=== PATIENT | female | born 1955 | race Caucasian/White ===

== ENCOUNTER 2016-11-17 05:56 | Inpatient (IN) | payer OTHER ==
[2016-11-10 11:26] LABS: BASOPHILS 0.5 %; BASOPHILS ABSOLUTE 0.04 10/3/uL (0.0-0.16); EOSINOPHILS 1.9 %; EOSINOPHILS ABSOLUTE 0.16 10/3/uL (0.0-0.53); HEMATOCRIT 40.8 % (36.0-48.0); HEMOGLOBIN 13.2 g/dL (12.0-16.0); IMMATURE GRANULOCYTES 0.4 %; IMMATURE GRANULOCYTES ABSOLUTE 0.03 10/3/uL (0.0-0.11); LYMPHOCYTES 33.9 %; LYMPHOCYTES ABSOLUTE 2.89 10/3/uL (0.67-4.30); MEAN CORPUS HGB CONC 32.4 g/dL (32.0-36.0); MEAN CORPUSCULAR HEMOGLOB 27.6 pg (26.0-34.0); MEAN CORPUSCULAR VOLUME 85.4 fL (80-100); MEAN PLATELET VOLUME 9.7 fL (9.2-13.0); MONOCYTES 8.3 %; MONOCYTES ABSOLUTE 0.71 10/3/uL (0.21-1.20); PLATELET COUNT 367 10/3/uL (150-400); RBC DISTRIBUTION WIDTH 14.2 % (12.0-16.0); RED CELL COUNT 4.78 10/6/uL (4.0-5.6)
[2016-11-10 11:27] LABS: MANUAL DIFF NO %; WHITE BLOOD CELLS 8.5 10/3/uL (4.5-10.5)
[2016-11-10 11:33] LABS: PARTIAL THROMBO TIME 29.5 SEC (22.5-37.2); PROTIME (NOT ORD) 13.5 SEC (12.0-14.5)
[2016-11-10 11:40] LABS: A/G RATIO 0.9 (0.7-1.9); ALBUMIN 3.4 G/DL (3.5-5.0); ALKALINE PHOSPHATASE 65 U/L (45-117); BUN (BLOOD UREA NITROGEN) 14 MG/DL (6-23); CALCIUM, SERUM 8.9 MG/DL (8.5-10.4); CHLORIDE, SERUM 106 MMOL/L (96-112); CO2 (CARBON DIOXIDE) 27 MMOL/L (24-34); CREATININE 0.68 MG/DL (0.55-1.02); GFR AFRICAN AMERICAN 109 ML/MIN (>=60); GFR NON AFRICAN AMERICAN 94 ML/MIN (>=60); GLOBULIN 3.8 G/DL (2.5-4.1); GLUCOSE, SERUM 107 MG/DL (60-99); POTASSIUM, SERUM 3.9 MMOL/L (3.5-5.3); SGOT(AST) 19 U/L (5-40); SGPT(ALT) 31 U/L (5-65); SODIUM, SERUM 142 MMOL/L (135-148); TOTAL BILIRUBIN 0.3 MG/DL (0-1.2); TOTAL PROTEIN 7.2 G/DL (6.0-8.5)
--- NOTE | ~2016-11-17 | DS ---
Discharge Summary [facility] [address] [place]. [address] NAME: JUNE NEW : 55 STATUS : DIS IN PAT#: [id number] AGE: 61 ADM/REG DATE : 11/17/16 MR#: [id number] REPORT SERV DATE: 12/02/16 DICTATED BY: MILES BREWSTER III DATE: 12/01/16 REPORT STATUS : Draft TRANSCRIBED BY: JOSE DATE: 12/01/16 Data Collection from hospitalization DISCHARGE DIAGNOSES: 1. Biopsy-proven adenocarcinoma of the distal stomach. 2. Gastroesophageal reflux disease. 3. Arthritis. CONSULTATIONS: None. PROCEDURES: Hemigastrectomy with antecolic Billroth II anastomosis, 11/17/2016. PATHOLOGY: Stomach, subtotal gastrectomy-adenocarcinoma diffuse, signet ring cell predominant, tumor site - antrum, size - maximal tumor dimension - 3.1 x 2.3 cm. Histologic grade-poorly differentiated. Local extent-tumor invasive submucosa (pT1b) vascular space invasion-not identified. Perineural invasion-not identified. Status of margins-negative. Left node-21 nodes negative for metastatic carcinoma (0/21). Treatment effect-no prior treatment. Other findings-fundic gland polyps. Multiple pathologic stage-1 (pT1b pN0 pM0). DISCHARGE MEDICATION: Multivitamins 1 every morning, Percocet 7.5/325 one tablet three times a day as needed, Protonix 40 mg daily. She was instructed not to continue Nexium. CONDITION AT DISCHARGE: Stable. DISPOSITION: The patient was discharged home on a soft diet with activities as instructed. She would follow up with me on 12/06/2016. HOSPITAL COURSE: This is a 61-year-old female who recently underwent upper endoscopy for gastroesophageal reflux disease. She was found to have an ulcer in the distal stomach which on biopsy was found to be malignant. Preoperative workup showed no evidence for metastatic disease. It was felt that a partial distal gastrectomy was indicated. Treatment options were discussed, and it was elected to proceed with surgical intervention. She was admitted to the hospital at this time for further evaluation and treatment. Upon admission, she was taken to the operating room where she underwent the above-mentioned procedure. She tolerated this well. There were no complications. On postop day #1, she did have some nausea during the night. She was feeling better at this time. Her abdomen was soft. She remained n.p.o. with an NG tube in place. The epidural catheter was still in place. On 11/19/2016, she was alert and comfortable. The NG tube remained in place. Hare catheter was also in place secondary to the epidural. She was going to be transferred to the floor. Later that day, the epidural catheter was removed and the tip was intact. On 11/20/2016, the Hare catheter was removed. She continued to progress. She had no new complaints. Discharge planning was performed. She was evaluated by Physical Therapy. The NG tube was removed. She was started on clear liquids. 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 She was tolerating full liquids. Reglan was continued as well as Protonix. On 11/24/2016, she felt well and wanted to go home. She was eating and ambulating well. She was passing stool. Discharge instructions were given. Due to her improved and stable condition, she was discharged home with the above-stated instructions. Discharge Summary [address] [address] NAME: JUNE NEW : 55 STATUS : DIS IN PAT#: [id number] AGE: 61 ADM/REG DATE : 11/17/16 MR#: [id number] REPORT SERV DATE: 12/02/16 DICTATED BY: MILES BREWSTER III DATE: 12/01/16 REPORT STATUS : Draft TRANSCRIBED BY: JOSE DATE: 12/01/16 Information collected by: Toshia Stewart I submit the above information as my discharge summary. GAEL/JOSE Miles Brewster III, M.D. / [id number] CC: Melida Olsen III, M.D.
--- NOTE | ~2016-11-17 | PREOPHP ---
PreOp History and Physical [place] [address] [facility] [place]. [address] NAME: JUNE NEW : 55 STATUS : PRE IN PAT#: [id number] AGE: 61 ADM/REG DATE : MR#: [id number] REPORT SERV DATE: 11/16/16 DICTATED BY: MILES BREWSTER III DATE: 11/07/16 REPORT STATUS : Draft TRANSCRIBED BY: MODMar DATE: 11/07/16 HISTORY OF PRESENT ILLNESS: This 61-year-old female comes to the operating room for partial gastrectomy for biopsy proven cancer of the stomach. The patient recently underwent an upper endoscopy for followup of gastroesophageal reflux disease and long-term use of Nexium. She was found to have a malignant ulcer in the antrum of the stomach. The patient has had no nausea or vomiting. She has had no bleeding. She has had no weight loss. She comes now for partial gastrectomy for this biopsy-proven malignancy. PAST MEDICAL HISTORY: 1. Gastroesophageal reflux disease. 2. Arthritis. PAST SURGICAL HISTORY: Includes hysterectomy and cholecystectomy. FAMILY HISTORY: Positive for breast cancer and melanoma. MEDICATIONS: Nexium. SOCIAL HISTORY: No tobacco use or alcohol use. ALLERGIES: AMOXICILLIN. REVIEW OF SYSTEMS: The patient's 14-point review of systems is otherwise unremarkable. PHYSICAL EXAMINATION: GENERAL: This is a pleasant female, in no acute distress. She is alert and oriented x3. VITAL SIGNS: Blood pressure 128/83, pulse 109, temp 97.4. HEENT: Unremarkable. Cranial nerves 2 through 12 are normal. LUNGS: Clear. CARDIAC: Normal. ABDOMEN: Soft. Nontender. No masses. EXTREMITIES: Normal. LABORATORY DATA: Recent panendoscopy shows a 3 cm ulcer in the antrum. Biopsy confirms this to be a malignant ulcer, poorly differentiated adenocarcinoma. ASSESSMENT: 61-year-old female with biopsy proven cancer of the distal stomach. PLAN: The patient comes to the operating room now for partial gastrectomy. This procedure, the risks, benefits, and alternatives, including but not limited to the risk for bleeding, infection, enterotomy, injury to abdominal structure, postop small bowel obstruction, ileus, incisional hernia, dehiscence, gastroparesis, gastric bowel obstruction, anastomotic leak requiring reoperation and resulting in peritonitis, sepsis, and , pancreatic injury, common bile duct injury, duodenal stump leak resulting in peritonitis, sepsis, and , PreOp History and Physical [address] [place]. [address] NAME: JUNE NEW : 55 STATUS : PRE IN PAT#: [id number] AGE: 61 ADM/REG DATE : MR#: [id number] REPORT SERV DATE: 11/16/16 DICTATED BY: MILES BREWSTER III DATE: 11/07/16 REPORT STATUS : Draft TRANSCRIBED BY: JOSE DATE: 11/07/16 and unforeseen complications including deep venous thrombosis, pulmonary embolus, myocardial infarction, stroke, pneumonia, and , have been fully and completely explained to the patient at length prior to surgery. The fact that this is a major operation with risk for major morbidity and mortality has been explained. The expected length of recovery has been explained. The patient had questions which have been answered. She understands the risks and agrees to surgery as planned. GARCÍA/JOSE Miles Brewster III, M.D. / [id number] CC: Melida Olsen III, M.D.
--- NOTE | ~2016-11-17 | OP ---
Record Of Operation [facility] [address] [place]. [address] NAME: JUNE NEW : 55 STATUS : ADM IN [facility]#: [id number] AGE: 61 ADM/REG DATE : 11/17/16 MR#: [id number] REPORT SERV DATE: 11/18/16 DICTATED BY: MILES BREWSTER III DATE: 11/18/16 REPORT STATUS : Draft TRANSCRIBED BY: MODMar DATE: 11/18/16 DATE OF PROCEDURE: 11/17/2016 PREOPERATIVE DIAGNOSIS: Biopsy-proven adenocarcinoma of the distal stomach. POSTOPERATIVE DIAGNOSIS: Biopsy-proven adenocarcinoma of the distal stomach. PROCEDURE: Hemigastrectomy with antecolic Billroth II anastomosis. SURGEON: Miles Brewster M.D. ANESTHESIA: General with intubation. COMPLICATIONS: None. ESTIMATED BLOOD LOSS: 30 mL. SPECIMENS: Distal stomach. DRAINS: Arvind-Daniel in abdominal cavity and Pryor in subcutaneous tissue. LAP AND SPONGE COUNT: Correct x3. BRIEF HISTORY: This 61-year-old female, who recently underwent an upper endoscopy for gastroesophageal reflux disease. She was found to have an ulcer in the distal stomach which on biopsy was found to be malignant. Her preoperative workup showed no evidence for metastatic disease. It was felt that a partial distal gastrectomy was indicated. This procedure, the risks, benefits, and alternatives, including but not limited to the risk for bleeding, infection, enterotomy, injury to any abdominal structure, postop small bowel obstruction, ileus, incisional hernia, dehiscence, gastroparesis, gastric outlet obstruction, anastomotic leak, resulting in peritonitis, sepsis, and , and requiring reoperation, duodenal stump leak resulting in peritonitis, sepsis, and , and unforeseen complications including deep venous thrombosis, pulmonary embolus, myocardial infarction, stroke, pneumonia, and , were fully and completely explained to the patient and her family at length prior to the surgery. The fact that this was a major operation with risk for major morbidity and mortality was explained. The expected length of recovery was explained. The patient had questions, which were answered. She fully understood the risks and agreed to surgery as planned. FINDINGS: The patient had an ulcer in the distal stomach in the antrum corresponding to the malignant ulcer. There was no evidence for metastatic disease or carcinomatosis. The patient did have multiple small polyps throughout the body of the stomach which will need to be followed endoscopically. DESCRIPTION OF PROCEDURE: After being properly identified, and after discussing the risks of surgery with the patient and family in the preoperative area, the patient was taken to the Record Of Operation [address] [place]. [address] NAME: JUNE NEW : 55 STATUS : ADM IN PAT#: [id number] AGE: 61 ADM/REG DATE : 11/17/16 MR#: [id number] REPORT SERV DATE: 11/18/16 DICTATED BY: MILES BREWSTER III DATE: 11/18/16 REPORT STATUS : Draft TRANSCRIBED BY: JOSE DATE: 11/18/16 operating room, and placed in the supine position on the operating room table. General anesthesia was administered and she was intubated without difficulty. An NG tube and a Hare catheter were inserted. The abdomen was prepped and draped sterilely in the usual fashion. After an appropriate "time-out" per JCAHO standards, a midline incision was made from the xiphoid to the umbilicus. The incision was continued through the subcutaneous tissue. Hemostasis was controlled with cautery. The incision was continued through the fascia. The abdominal cavity was entered. The abdomen was inspected. The liver was normal. There was no evidence for metastatic disease or carcinomatosis. There were adhesions between the distal stomach and the liver from the patient's previous cholecystectomy. Using sharp dissection, these adhesions were carefully divided. A Jacqueline maneuver was performed by dividing the peritoneal reflection along the second and third portion of the duodenum, and mobilized the duodenum medially. We selected a point for division of the mid body of the stomach. The ulcer was palpable in the antrum just proximal to the pylorus. The omentum was carefully from the transverse colon. The lesser omentum was similarly divided along its base, so as to remove all the omentum in the involved portion of the stomach with the specimen. The right gastric artery was identified, isolated, and ligated at its base. We then divided the midbody of the stomach at the junction of the antrum and the body of the stomach using a GILLIAN stapler. It was divided transversely. The dissection was continued distally to beyond the pylorus. The first portion of the duodenum was then divided with a TA-60 stapler. The specimen consisting of the distal half of the stomach and attached omentum, and lymphatic supply was removed, and sent to pathology, interpreted as containing the ulcer with clear margins. The duodenal stump was carefully oversewn with interrupted 3-0 silk sutures. This resulted in good inversion of the stump. We identified the proximal jejunum just beyond the ligament of Treitz to perform the Billroth II gastrojejunostomy. An antecolic anastomosis was performed. The transverse colon and omentum was somewhat adherent posteriorly and it was difficult to define the entrance point to pass the jejunum in a retrocolic fashion. The omentum was densely adherent and tied down in the pelvis stretching the transverse colon, in this way, making it difficult to find an avascular plane, in the mesentery, the transverse colon did pass the jejunum in an antecolic fashion. For this reason, it was my judgment that it was safest to perform the anastomosis again and antecolic fashion. We then performed an sgp-xggiefp-ka-side-jejunal anastomosis. A two-layer anastomosis was performed. The outer posterior layer of the anastomosis was completed with interrupted 3-0 silk sutures. The inner layer of anastomosis was completed with a running 3-0 chromic suture, and the outer anterior layer of anastomosis was completed with interrupted 3-0 silk sutures. We used the majority of the divided portion of the stomach for anastomosis, which was there for some 4 cm in length. Upon completion of this, the anastomosis was widely patent to palpation. It was not twisted or kinked in any way, it was not under any tension. The lesser curve of the stomach which had been stapled, but not incorporated the Record Of Operation [address] [place]. [address] NAME: JUNE NEW : 55 STATUS : ADM IN PAT#: [id number] AGE: 61 ADM/REG DATE : 11/17/16 MR#: [id number] REPORT SERV DATE: 11/18/16 DICTATED BY: MILES BREWSTER III DATE: 11/18/16 REPORT STATUS : Draft TRANSCRIBED BY: MODL DATE: 11/18/16 anastomosis, was oversewn with interrupted 3-0 silk sutures. Again, the anastomosis was not twisted or kinked in any way. Both the afferent and efferent limbs were checked to be certain there was no twisting or kinking. The abdominal cavity irrigated copiously with saline. Hemostasis was assured. Evicel was placed over the duodenal stump. A Arvind-Daniel drain was brought through a separate stab wound and placed in the right upper quadrant. Hemostasis was assured. The fascia was closed with a running looped #1 PDS suture. The subcutaneous tissue was closed with running 3-0 chromic suture over a Fabiano drain which was brought out through the inferior aspect of the incision. The skin was closed with running subcuticular 4-0 Monocryl stitch. Dressings were applied. Anesthesia was reversed. The patient was taken to the recovery room in stable condition. She tolerated the procedure well. Her family was informed the results of surgery. The patient will remain in the hospital for postoperative care. GARCÍA/JOSE Miles Brewster III, M.D. / [id number] CC: Melida Olsen III, MD
[~2016-11-17 05:56] MED LIST: MACROBID PO; MULTI-VIT HP PO; NEXIUM40 PO; PCET PO; PR25R PR
[2016-11-18 05:39] LABS: A/G RATIO 0.9 (0.7-1.9); ALBUMIN 2.9 G/DL (3.5-5.0); CALCIUM, SERUM 8.1 MG/DL (8.5-10.4); CHLORIDE, SERUM 106 MMOL/L (96-112); CO2 (CARBON DIOXIDE) 25 MMOL/L (24-34); CREATININE 0.72 MG/DL (0.55-1.02); GFR AFRICAN AMERICAN 105 ML/MIN (>=60); GFR NON AFRICAN AMERICAN 90 ML/MIN (>=60); GLOBULIN 3.4 G/DL (2.5-4.1); POTASSIUM, SERUM 4.3 MMOL/L (3.5-5.3); SGOT(AST) 24 U/L (5-40); SGPT(ALT) 42 U/L (5-65); SODIUM, SERUM 139 MMOL/L (135-148); TOTAL BILIRUBIN 0.5 MG/DL (0-1.2); TOTAL PROTEIN 6.3 G/DL (6.0-8.5)
[2016-11-18 05:40] LABS: BASOPHILS 0.1 %; BASOPHILS ABSOLUTE 0.01 10/3/uL (0.0-0.16); EOSINOPHILS 0 %; HEMOGLOBIN 12.1 g/dL (12.0-16.0); IMMATURE GRANULOCYTES 0.4 %; IMMATURE GRANULOCYTES ABSOLUTE 0.06 10/3/uL (0.0-0.11); LYMPHOCYTES 9.4 %; LYMPHOCYTES ABSOLUTE 1.54 10/3/uL (0.67-4.30); MEAN CORPUS HGB CONC 32.7 g/dL (32.0-36.0); MEAN CORPUSCULAR HEMOGLOB 28.1 pg (26.0-34.0); MEAN PLATELET VOLUME 9.7 fL (9.2-13.0); MONOCYTES 9.2 %; NEUTROPHILS 80.9 %; NEUTROPHILS ABSOLUTE 13.28 10/3/uL (2.02-8.40); PLATELET COUNT 302 10/3/uL (150-400); RBC DISTRIBUTION WIDTH 14.8 % (12.0-16.0)
[2016-11-18 05:42] LABS: ALKALINE PHOSPHATASE 45 U/L (45-117); BUN (BLOOD UREA NITROGEN) 9 MG/DL (6-23); GLUCOSE, SERUM 196 MG/DL (60-99)
[2016-11-18 05:44] LABS: MANUAL DIFF NO %; WHITE BLOOD CELLS 16.4 10/3/uL (4.5-10.5)
[2016-11-19 05:10] LABS: BASOPHILS 0.2 %; BASOPHILS ABSOLUTE 0.03 10/3/uL (0.0-0.16); EOSINOPHILS 0.2 %; EOSINOPHILS ABSOLUTE 0.03 10/3/uL (0.0-0.53); IMMATURE GRANULOCYTES 0.3 %; IMMATURE GRANULOCYTES ABSOLUTE 0.04 10/3/uL (0.0-0.11); LYMPHOCYTES 15.8 %; LYMPHOCYTES ABSOLUTE 2.22 10/3/uL (0.67-4.30); MEAN CORPUS HGB CONC 31.6 g/dL (32.0-36.0); MEAN CORPUSCULAR HEMOGLOB 27.5 pg (26.0-34.0); MEAN CORPUSCULAR VOLUME 87.2 fL (80-100); MEAN PLATELET VOLUME 9.5 fL (9.2-13.0); MONOCYTES 9.4 %; MONOCYTES ABSOLUTE 1.33 10/3/uL (0.21-1.20); NEUTROPHILS 74.1 %; NEUTROPHILS ABSOLUTE 10.44 10/3/uL (2.02-8.40); PLATELET COUNT 264 10/3/uL (150-400); RED CELL COUNT 4.36 10/6/uL (4.0-5.6); WHITE BLOOD CELLS 14.1 10/3/uL (4.5-10.5)
[2016-11-19 05:15] LABS: MANUAL DIFF NO %
[2016-11-19 05:20] LABS: BUN (BLOOD UREA NITROGEN) 7 MG/DL (6-23); CALCIUM, SERUM 8.1 MG/DL (8.5-10.4); CHLORIDE, SERUM 105 MMOL/L (96-112); CO2 (CARBON DIOXIDE) 26 MMOL/L (24-34); CREATININE 0.62 MG/DL (0.55-1.02); GFR AFRICAN AMERICAN 113 ML/MIN (>=60); GFR NON AFRICAN AMERICAN 97 ML/MIN (>=60); SODIUM, SERUM 140 MMOL/L (135-148)
[2016-11-19 05:21] LABS: GLUCOSE, SERUM 144 MG/DL (60-99)
[2016-11-20 04:29] LABS: BASOPHILS 0.2 %; BASOPHILS ABSOLUTE 0.03 10/3/uL (0.0-0.16); EOSINOPHILS 0.8 %; HEMATOCRIT 37.3 % (36.0-48.0); HEMOGLOBIN 11.9 g/dL (12.0-16.0); IMMATURE GRANULOCYTES 0.4 %; IMMATURE GRANULOCYTES ABSOLUTE 0.05 10/3/uL (0.0-0.11); LYMPHOCYTES 12.3 %; LYMPHOCYTES ABSOLUTE 1.64 10/3/uL (0.67-4.30); MEAN CORPUS HGB CONC 31.9 g/dL (32.0-36.0); MEAN CORPUSCULAR HEMOGLOB 27.8 pg (26.0-34.0); MEAN CORPUSCULAR VOLUME 87.1 fL (80-100); MEAN PLATELET VOLUME 9.3 fL (9.2-13.0); MONOCYTES 8.9 %; MONOCYTES ABSOLUTE 1.18 10/3/uL (0.21-1.20); NEUTROPHILS 77.4 %; NEUTROPHILS ABSOLUTE 10.32 10/3/uL (2.02-8.40); PLATELET COUNT 292 10/3/uL (150-400); RBC DISTRIBUTION WIDTH 14.6 % (12.0-16.0); RED CELL COUNT 4.28 10/6/uL (4.0-5.6); WHITE BLOOD CELLS 13.3 10/3/uL (4.5-10.5)
[2016-11-20 04:30] LABS: MANUAL DIFF NO %
[2016-11-20 04:40] LABS: BUN (BLOOD UREA NITROGEN) 7 MG/DL (6-23); CALCIUM, SERUM 8.1 MG/DL (8.5-10.4); CHLORIDE, SERUM 102 MMOL/L (96-112); CO2 (CARBON DIOXIDE) 29 MMOL/L (24-34); CREATININE 0.52 MG/DL (0.55-1.02); GFR AFRICAN AMERICAN 120 ML/MIN (>=60); GFR NON AFRICAN AMERICAN 103 ML/MIN (>=60); POTASSIUM, SERUM 4.3 MMOL/L (3.5-5.3); SODIUM, SERUM 140 MMOL/L (135-148)
[2016-11-20 04:42] LABS: GLUCOSE, SERUM 181 MG/DL (60-99)
[2016-11-21 07:10] LABS: BASOPHILS 0.3 %; BASOPHILS ABSOLUTE 0.03 10/3/uL (0.0-0.16); EOSINOPHILS 3.3 %; EOSINOPHILS ABSOLUTE 0.39 10/3/uL (0.0-0.53); HEMATOCRIT 35.9 % (36.0-48.0); HEMOGLOBIN 11.6 g/dL (12.0-16.0); IMMATURE GRANULOCYTES 0.3 %; IMMATURE GRANULOCYTES ABSOLUTE 0.03 10/3/uL (0.0-0.11); LYMPHOCYTES ABSOLUTE 2.13 10/3/uL (0.67-4.30); MEAN CORPUS HGB CONC 32.3 g/dL (32.0-36.0); MEAN CORPUSCULAR HEMOGLOB 27.3 pg (26.0-34.0); MEAN CORPUSCULAR VOLUME 84.5 fL (80-100); MEAN PLATELET VOLUME 9.2 fL (9.2-13.0); MONOCYTES 9.3 %; NEUTROPHILS 68.8 %; NEUTROPHILS ABSOLUTE 8.18 10/3/uL (2.02-8.40); PLATELET COUNT 303 10/3/uL (150-400); RBC DISTRIBUTION WIDTH 14.3 % (12.0-16.0); RED CELL COUNT 4.25 10/6/uL (4.0-5.6); WHITE BLOOD CELLS 11.9 10/3/uL (4.5-10.5)
[2016-11-21 07:11] LABS: MANUAL DIFF NO %
[2016-11-21 07:21] LABS: BUN (BLOOD UREA NITROGEN) 5 MG/DL (6-23); CALCIUM, SERUM 8.4 MG/DL (8.5-10.4); CHLORIDE, SERUM 103 MMOL/L (96-112); CO2 (CARBON DIOXIDE) 29 MMOL/L (24-34); CREATININE 0.54 MG/DL (0.55-1.02); GFR AFRICAN AMERICAN 118 ML/MIN (>=60); GFR NON AFRICAN AMERICAN 102 ML/MIN (>=60); GLUCOSE, SERUM 153 MG/DL (60-99); POTASSIUM, SERUM 3.7 MMOL/L (3.5-5.3); SODIUM, SERUM 140 MMOL/L (135-148)
[2016-11-22 05:31] LABS: BASOPHILS 0.3 %; BASOPHILS ABSOLUTE 0.03 10/3/uL (0.0-0.16); EOSINOPHILS 2.9 %; EOSINOPHILS ABSOLUTE 0.29 10/3/uL (0.0-0.53); HEMOGLOBIN 11.1 g/dL (12.0-16.0); IMMATURE GRANULOCYTES 0.1 %; IMMATURE GRANULOCYTES ABSOLUTE 0.01 10/3/uL (0.0-0.11); LYMPHOCYTES ABSOLUTE 2.39 10/3/uL (0.67-4.30); MEAN CORPUS HGB CONC 31.7 g/dL (32.0-36.0); MEAN CORPUSCULAR HEMOGLOB 27.5 pg (26.0-34.0); MEAN CORPUSCULAR VOLUME 86.6 fL (80-100); MEAN PLATELET VOLUME 9.2 fL (9.2-13.0); MONOCYTES 11.3 %; MONOCYTES ABSOLUTE 1.13 10/3/uL (0.21-1.20); NEUTROPHILS 61.4 %; NEUTROPHILS ABSOLUTE 6.12 10/3/uL (2.02-8.40); PLATELET COUNT 324 10/3/uL (150-400); RBC DISTRIBUTION WIDTH 14.3 % (12.0-16.0); RED CELL COUNT 4.04 10/6/uL (4.0-5.6)
[2016-11-22 05:32] LABS: MANUAL DIFF NO %
[2016-11-22 05:42] LABS: BUN (BLOOD UREA NITROGEN) 7 MG/DL (6-23); CALCIUM, SERUM 8.5 MG/DL (8.5-10.4); CHLORIDE, SERUM 107 MMOL/L (96-112); CO2 (CARBON DIOXIDE) 28 MMOL/L (24-34); CREATININE 0.52 MG/DL (0.55-1.02); GFR AFRICAN AMERICAN 120 ML/MIN (>=60); GFR NON AFRICAN AMERICAN 103 ML/MIN (>=60); GLUCOSE, SERUM 136 MG/DL (60-99); POTASSIUM, SERUM 3.9 MMOL/L (3.5-5.3); SODIUM, SERUM 143 MMOL/L (135-148)
[2016-11-24] MEDS ORDERED: PROTONIX PO (08:45)
[2016-11-24] MEDS ORDERED: PERCOCET 7.5/321 TAB PO (08:45)
== END 2016-11-24 09:41 | disposition home or self-care (01) | DRG 327 ==
LOC: SDC/OF 05:56 → PACU 10:14 → MIC 19:53 → 5SO 11-20 14:19
PROVIDERS: Surgery
PROC: 0D160ZA Bypass Stomach to Jejunum, Open Approach (ICD-10-PCS; 2016-11-17)
PROC: 3E0R3GC Introduction of Other Therapeutic Substance into Spinal Canal, Percutaneous Approach (ICD-10-PCS; 2016-11-17)
PROC: 0DB60ZZ Excision of Stomach, Open Approach (ICD-10-PCS; principal; 2016-11-17 07:45)
DX: C16.2 Malignant neoplasm of body of stomach (principal); K91.3 Postprocedural intestinal obstruction; K21.9 Gastro-esophageal reflux disease without esophagitis; M19.90 Unspecified osteoarthritis, unspecified site; Z90.710 Acquired absence of both cervix and uterus; Z90.49 Acquired absence of other specified parts of digestive tract; Z98.890 Other specified postprocedural states; Z80.3 Family history of malignant neoplasm of breast; Z80.8 Family history of malignant neoplasm of other organs or systems
CPT/HCPCS: 36415; 71020; 80048; 80053; 85025; 85610; 85730; 86850; 86900; 86901; 87641; 88309; 88331; 88342; 93005; 97161-GP; A9270-GY; C9113; J0690; J1885; J2250; J2300; J2405; J2550; J2710; J2765; J3010; P9045